=== PATIENT | male | born 1985 | race African-American/Black ===

== ENCOUNTER 2017-12-01 16:32 | Emergency (ER) | payer OTHER ==
[~2017-12-01] VITALS: Ht 185.4 cm; Wt 77.1 kg
[~2017-12-01 16:32] MED LIST: ASPIRIN325 PO; CYCLOBENZAPRINE5 MG PO; IBUPROFEN 600600 M1 PO; NOHOMEMEDICATIONS; NORCO 5-325 TA1 EACH PO
[2017-12-01] MEDS ORDERED: MOBIC15 MG PO (17:54)
== END 2017-12-01 18:16 | disposition home or self-care (01) ==
LOC: ER 16:32
DX: S16.1XXA Strain of muscle, fascia and tendon at neck level, initial encounter (principal); M79.652 Pain in left thigh; R10.31 Right lower quadrant pain; R07.89 Other chest pain; M54.6 Pain in thoracic spine; F17.210 Nicotine dependence, cigarettes, uncomplicated; V89.2XXA Person injured in unspecified motor-vehicle accident, traffic, initial encounter; Y93.89 Activity, other specified; Y92.89 Other specified places as the place of occurrence of the external cause; Y99.8 Other external cause status

== ENCOUNTER 2017-12-17 14:37 | Emergency (ER) | payer OTHER ==
[~2017-12-17] VITALS: Ht 185.4 cm; Wt 79.8 kg
[~2017-12-17 14:37] MED LIST changes: +MOBIC15 MG PO
[2017-12-17 15:38] LABS: ABSOLUTE NEUTROPHILS 3.7 thou/uL (1.4-8.2); BASOPHILS 0.8 % (0.0-2.0); HEMATOCRIT 38.5 % (42.0-52.0); LYMPHOCYTES 24.8 % (24.0-44.0); MCHC 33.7 g/dL (28.0-37.0); MCV 80.1 fL (80.0-100.0); MONOCYTES 10.1 % (1.0-8.0); PLATELET COUNT 278 thou/uL (150-400); POLYS 58.3 % (36.0-66.0); RBC 4.81 mil/uL (4.50-6.00); RDW 13.5 % (10.5-14.5); WBC 6.3 thou/uL (4.0-11.0)
[2017-12-17 15:50] LABS: CALCIUM 9.3 mg/dL (8.5-10.1); CREATININE 1.3 mg/dL (0.7-1.3); POTASSIUM 4.1 mmol/L (3.5-5.1)
[2017-12-17] MEDS ORDERED: LIORESAL 10 MG10 MG PO (15:51)
[2017-12-17] MEDS ORDERED: REGLAN 10 MG TA10 MG PO (15:51)
== END 2017-12-17 16:08 | disposition home or self-care (01) ==
LOC: ER 14:37
PROVIDERS: Physician Assistant
DX: R51 Headache (principal); M54.5 Low back pain; M79.1 Myalgia; F17.210 Nicotine dependence, cigarettes, uncomplicated; V49.69XA Unspecified car occupant injured in collision with other motor vehicles in traffic accident, initial encounter; Y93.89 Activity, other specified; Y92.89 Other specified places as the place of occurrence of the external cause; Y99.8 Other external cause status

== ENCOUNTER 2019-12-29 17:08 | Emergency (ER) | payer OTHER ==
[~2019-12-29] VITALS: Ht 185.4 cm; Wt 83.9 kg
[~2019-12-29 17:08] MED LIST changes: +LIORESAL 10 MG10 MG PO; +REGLAN 10 MG TA10 MG PO
[2019-12-29 17:09] VITALS: BP 121/78
[2019-12-29] MEDS ORDERED: NORCO 5-325 TA1 EAC1 PO (18:11)
[2019-12-29] MEDS ORDERED: MEDROLDOSEPACK PO (18:11)
[2019-12-29] MEDS ORDERED: CYCLOBENZAPRINE5 MG PO (18:11)
== END 2019-12-29 18:07 | disposition home or self-care (01) ==
LOC: ER 17:08
DX: M54.31 Sciatica, right side (principal); F17.210 Nicotine dependence, cigarettes, uncomplicated

== ENCOUNTER 2020-12-29 08:44 | Emergency (ER) | payer OTHER ==
[~2020-12-29] VITALS: Ht 185.4 cm; Wt 81.7 kg
[~2020-12-29 08:44] MED LIST changes: +MEDROLDOSEPACK PO; +NORCO 5-325 TA1 EAC1 PO
[2020-12-29 10:10] VITALS: BP 115/58
== END 2020-12-29 10:29 | disposition home or self-care (01) ==
LOC: ER 08:44
DX: G43.909 Migraine, unspecified, not intractable, without status migrainosus (principal); F17.210 Nicotine dependence, cigarettes, uncomplicated

== ENCOUNTER 2021-06-10 11:52 | Emergency (ER) | payer OTHER ==
[~2021-06-10] VITALS: Ht 188 cm; Wt 83.9 kg
[2021-06-10 12:04] LABS: URINE BILIRUBIN NEGATIVE (Negative); URINE BLOOD 2+ (Negative); URINE CLARITY CLOUDY; URINE COLOR YELLOW; URINE GLUCOSE-RANDOM* NEGATIVE (Negative); URINE KETONES NEGATIVE (Negative); URINE NITRITE-REFLEX NEGATIVE (Negative); URINE PROTEIN (DIPSTICK) 1+ (Negative); URINE SPECIFIC GRAVITY 1.025 (1.005-1.035); URINE UROBILINOGEN 0.2 E.U./dl (0.2-1.0)
[2021-06-10 12:07] LABS: URINE LEUKOCYTES-REFLEX 3+ (Negative)
[2021-06-10] MEDS ORDERED: CEPHALEXIN500 MG PO (12:18)
[2021-06-10 12:21] LABS: URINE WBC-REFLEX >25 Many /HPF (0-5)
[2021-06-10 12:22] LABS: BACTERIA-REFLEX 1-9 Few /HPF (None Seen); CASTS None Seen /LPF (None Seen); CRYSTALS None Seen /LPF (None Seen); SQUAMOUS None Seen /LPF (0-3); URINE RBC None Seen /HPF (NONE SEEN)
[2021-06-10 13:04] VITALS: BP 132/64
== END 2021-06-10 13:10 | disposition home or self-care (01) ==
LOC: ER 11:52
PROVIDERS: Nurse Practitioner Family
DX: N39.0 Urinary tract infection, site not specified (principal); G43.909 Migraine, unspecified, not intractable, without status migrainosus; F17.210 Nicotine dependence, cigarettes, uncomplicated; Z20.2 Contact with and (suspected) exposure to infections with a predominantly sexual mode of transmission